=== PATIENT | male | born 1960 | race Caucasian/White ===

== ENCOUNTER 2019-05-06 00:22 | Emergency (ER) | payer SELFPAY ==
[2019-05-06] MEDS: HYDROCODONE/APAP (10/325) TAB PO (02:37)
== END 2019-05-06 05:35 | disposition home or self-care (01) ==
LOC: FTE 00:22
DX: S76.911A Strain of unspecified muscles, fascia and tendons at thigh level, right thigh, initial encounter (principal); E11.9 Type 2 diabetes mellitus without complications; X58.XXXA Exposure to other specified factors, initial encounter; Y92.9 Unspecified place or not applicable
CPT/HCPCS: 93971; 99284-25